=== PATIENT | female | born 1995 | race American Indian/Alaskan Native ===

== ENCOUNTER 2018-03-04 10:46 | Emergency (ER) | payer MEDICAID ==
[2018-03-04 11:04] VITALS: RESP 16; TEMP 98.2
[2018-03-04 11:45] LABS: URINE BILIRUBIN NEGATIVE (NEGATIVE); URINE BLOOD NEGATIVE (NEGATIVE); URINE GLUCOSE (UA) NEGATIVE (NEGATIVE); URINE LEUKOCYTE ESTERASE SMALL Leu/uL (NEGATIVE); URINE PROTEIN TRACE mg/dL (<30 mg/dL); URINE UROBILINOGEN 0.2 E.U./dL (<1 E.U./dL)
--- NOTE | 2018-03-04 11:48 | ED PDOC ---
Arrival/HPI - General Chief Complaint: Female Genitourinary Time Seen by Provider: 03/04/18 11:19 Historian: Patient - History of Present Illness Narrative History of Present Illness (Text): 03/04/18 11:44 A 22 year old female, with a past medical history of chlamydia, presents to the emergency department for a complaint of 2 day duration vaginal irritation and itchiness. The patient notes that she had unprotected sexual intercourse 4 days ago. She states that she noticed the discomfort 2 days ago, but denies any discharge. The patient states that her symptoms feel similar to when she was diagnosed with chlamydia. The patient denies fevers, chills, headache, dizziness , chest pain, shortness of breath, dyspnea on exertion, cough, abdominal pain, nausea, vomiting, diarrhea, back pain, neck pain, urinary/bowel changes, or any other complaint. Time/Duration: Other (2 Days) Symptom Onset: Sudden Symptom Course: Unchanged Activities at Onset: Rest, Light Context: Home Past Medical History - Provider Review Nursing Documentation Reviewed: Yes - Cardiac Hx Cardiac Disorders: No - Pulmonary Hx Respiratory Disorders: No - Neurological Hx Neurological Disorder: No - HEENT Hx HEENT Disorder: No - Renal Hx Renal Disorder: No - Endocrine/Metabolic Hx Endocrine Disorders: No - Hematological/Oncological Hx Blood Disorders: No - Integumentary Hx Dermatological Disorder: No - Musculoskeletal/Rheumatological Hx Musculoskeletal Disorders: No - Gastrointestinal Hx Gastrointestinal Disorders: No - Genitourinary/Gynecological Hx Genitourinary Disorders: Yes Hx Sexually Transmitted Diseases: Yes - Psychiatric Hx Psychophysiologic Disorder: No Hx Substance Use: Yes (CANNABIS) - Surgical History Other/Comment: AB Family/Social History - Physician Review Nursing Documentation Reviewed: Yes Family/Social History: No Known Family HX Smoking Status: Current Some Days Smoker Hx Alcohol Use: Yes Frequency of alcohol use: Socially Hx Substance Use: Yes (CANNABIS) Allergies/Home Meds Allergies/Adverse Reactions: Allergies No Known Allergies Allergy (Verified 03/04/18 10:59) Review of Systems - Physician Review All systems were reviewed & negative as marked: Yes - Review of Systems Constitutional: absent: Fevers, Night Sweats Respiratory: absent: SOB, Cough Cardiovascular: absent: Chest Pain, KRUGER Gastrointestinal: absent: Abdominal Pain, Stool Changes, Diarrhea, Nausea, Vomiting Genitourinary Female: Other (Vaginal irritation and itchiness. ). absent: Urine Output Changes Neurological: absent: Headache, Dizziness Physical Exam Vital Signs Reviewed: Yes Vital Signs Temp Pulse Resp BP Pulse Ox 03/04/18 10:59 98.2 F 83 16 115/73 97 Temperature: Afebrile Blood Pressure: Normal Pulse: Regular Respiratory Rate: Normal Appearance: Positive for: Well-Appearing, Non-Toxic, Comfortable Pain Distress: None Mental Status: Positive for: Alert and Oriented X 3 - Systems Exam Head: Present: Atraumatic, Normocephalic Pupils: Present: PERRL Extroacular Muscles: Present: EOMI Conjunctiva: Present: Normal Mouth: Present: Moist Mucous Membranes Neck: Present: Normal Range of Motion Respiratory/Chest: Present: Clear to Auscultation, Good Air Exchange. No: Respiratory Distress, Accessory Muscle Use Cardiovascular: Present: Regular Rate and Rhythm, Normal S1, S2. No: Murmurs Abdomen: No: Tenderness, Distention, Peritoneal Signs Genitourinary/Pelvic Exam: Present: Vaginal Discharge (Thick, white vaginal discharge), Other (Female Commercial Construction Estimator Sandra Tavares present.). No: Cervical Motion Tendernes Back: Present: Normal Inspection Upper Extremity: Present: Normal Inspection. No: Cyanosis, Edema Lower Extremity: Present: Normal Inspection. No: Edema Neurological: Present: GCS=15, CN II-XII Intact, Speech Normal Skin: Present: Warm, Dry, Normal Color. No: Rashes Psychiatric: Present: Alert, Oriented x 3, Normal Insight, Normal Concentration Medical Decision Making ED Course and Treatment: 03/04/18 11:50 Impression: A 22 year old female presents to the emergency department complaining of 2 day duration vaginal itchiness and irritation. Plan: -- Zithromax and Rocephin -- Urine Culture -- Urinalysis -- GC/chylamdyia -- Reassess and disposition Progress Notes: 03/04/18 11:58 pt is non toxic well appearing; no distress. ua; contamination pt with possible std exposure. hx of chlamydia in the past with similar symptoms. will treat with rocephin and zithromax . gc/chylamdyia cultures pending. will d/c home with diflucan for yeast infection. impression; vaginal discharge diflucan; 1 tablet once. follow up with the primary care physician within the next 2 days follow up with linux network administrator within the next 2 days. Return if symptoms worsen,persist or if new symptoms develop. 03/04/18 12:13 - Lab Interpretations Lab Results: Lab Results 03/04/18 11:30: Urine Color Yellow, Urine Appearance Clear, Urine pH 6.0, Ur Specific [place] 1.025, Urine Protein Trace H, Urine Glucose (UA) Negative, Urine Ketones Negative, Urine Blood Negative, Urine Nitrate Negative, Urine Bilirubin Negative, Urine Urobilinogen 0.2, Ur Leukocyte Esterase Small H, Urine RBC Negative, Urine WBC 2 - 5, Ur Epithelial Cells 6 - 8, Urine Bacteria Few - Medication Orders Current Medication Orders: Discontinued Medications Azithromycin (Zithromax) 1,000 mg PO STAT STA PRN Reason: Protocol Stop: 03/04/18 11:52 Ceftriaxone Sodium (Rocephin) 250 mg IM STAT STA PRN Reason: Protocol Stop: 03/04/18 11:52 - Scribe Statement The provider has reviewed the documentation as recorded by the [employer]us[employer] Sandra Tavares Provider Scribe Attestation: All medical record entries made by the Scribe were at my direction and personally dictated by me. I have reviewed the chart and agree that the record accurately reflects my personal performance of the history, physical exam, medical decision making, and the department course for this patient. I have also personally directed, reviewed, and agree with the discharge instructions and disposition. Disposition/Present on Arrival - Present on Arrival Any Indicators Present on Arrival: No History of DVT/PE: No History of Uncontrolled Diabetes: No Urinary Catheter: No History of Decub. Ulcer: No History Surgical Site Infection Following: None - Disposition Have Diagnosis and Disposition been Completed?: Yes Diagnosis: Vaginal discharge Disposition: HOME/ ROUTINE Disposition Time: 12:09 Patient Plan: Discharge Patient Problems: Current Active Problems Problem Status Onset Vaginal discharge Acute Condition: GOOD Discharge Instructions (ExitCare): Vaginal Discharge in Adults Additional Instructions: diflucan; 1 tablet once. follow up with the primary care physician within the next 2 days follow up with linux network administrator within the next 2 days. Return if symptoms worsen,persist or if new symptoms develop. Prescriptions: Fluconazole [Diflucan] 150 mg PO ONCE #1 tab Referrals: Nicole Shah MD [Primary Care Provider] - Follow up with primary Marvin Go MD [Staff Provider] - Follow up with primary Forms: [facility] (Australian), WORK NOTE
[2018-03-04 11:49] LABS: URINE APPEARANCE CLEAR (CLEAR); URINE COLOR YELLOW (YELLOW)
[2018-03-04] MEDS ORDERED: cefTRIAXone (Rocephin) 250 mg Inj IM STA (11:51)
[2018-03-04 12:01] LABS: URINE BACTERIA FEW (NEG); URINE RBC NEGATIVE /hpf (0-2)
[2018-03-04 12:32] VITALS: BP 118/70; PULSE 78; O2SAT 98
== END 2018-03-04 12:47 | disposition home or self-care (01) ==
LOC: MERGE 10:46 → ED 10:46
DX: N89.8 Other specified noninflammatory disorders of vagina (principal); F17.200 Nicotine dependence, unspecified, uncomplicated
CPT/HCPCS: 81001; 87086; 87491; 87591; 96372; 99284; J0696

== ENCOUNTER 2018-06-27 17:27 | Emergency (ER) | payer MEDICAID ==
[2018-06-27 17:27] VITALS: BMI 17.8
[2018-06-27 17:58] VITALS: RESP 18; TEMP 98.3; O2SAT 100
[2018-06-27 19:05] LABS: URINE BILIRUBIN NEGATIVE (NEGATIVE); URINE BLOOD NEGATIVE (NEGATIVE); URINE GLUCOSE (UA) NEGATIVE (NEGATIVE); URINE LEUKOCYTE ESTERASE SMALL Leu/uL (NEGATIVE); URINE PROTEIN 30 mg/dL (<30 mg/dL)
--- NOTE | 2018-06-27 19:05 | ED PDOC ---
Arrival/HPI - General Chief Complaint: Female Genitourinary Time Seen by Provider: 06/27/18 17:48 Historian: Patient - History of Present Illness Narrative History of Present Illness (Text): 06/27/18 19:05 22-year-old female presents today with concerns for a 4 day history of vaginal irritation. Patient states she noted some brownish vaginal discharge as well. Patient denies fevers or chills. No chest pain or shortness of breath. She denies abdominal pain. Denies any urinary symptoms. She denies any vaginal lesions. Patient states she thinks that she may have a yeast infection. Patient denies any recent unprotected sex. Patient denies flank pain. No other complaints Past Medical History - Provider Review Nursing Documentation Reviewed: Yes - Travel History Have you recently traveled outside [place] w/in the past 3 mons?: No - Cardiac Hx Cardiac Disorders: No - Pulmonary Hx Respiratory Disorders: No - Neurological Hx Neurological Disorder: No - HEENT Hx HEENT Disorder: Yes Other/Comment: OTITIS, PHARYNGITIS - Renal Hx Renal Disorder: No - Endocrine/Metabolic Hx Endocrine Disorders: No - Hematological/Oncological Hx Blood Disorders: No - Integumentary Hx Dermatological Disorder: No - Musculoskeletal/Rheumatological Hx Musculoskeletal Disorders: No - Gastrointestinal Hx Gastrointestinal Disorders: No - Genitourinary/Gynecological Hx Genitourinary Disorders: Yes Hx Sexually Transmitted Diseases: Yes Other/Comment: VAGINITIS - Psychiatric Hx Psychophysiologic Disorder: No Hx Substance Use: Yes - Surgical History Other/Comment: AB - Anesthesia Hx Anesthesia: No Hx Anesthesia Reactions: No - Suicidal Assessment Feels Threatened In Home Enviroment: No Family/Social History - Physician Review Nursing Documentation Reviewed: Yes Family/Social History: Unknown Family HX Smoking Status: Light Smoker < 10 Cigarettes Daily Hx Alcohol Use: Yes Hx Substance Use: Yes Substance used: marijuana Allergies/Home Meds Allergies/Adverse Reactions: Allergies No Known Allergies Allergy (Verified 06/27/18 17:37) Review of Systems - Review of Systems Constitutional: absent: Fatigue, Fevers Respiratory: absent: SOB, Cough Cardiovascular: absent: Chest Pain, Palpitations Gastrointestinal: absent: Abdominal Pain, Nausea, Vomiting Genitourinary Female: absent: Dysuria, Frequency, Hematuria Musculoskeletal: absent: Arthralgias, Back Pain, Neck Pain Skin: absent: Rash, Pruritis Neurological: absent: Headache, Dizziness Psychiatric: absent: Anxiety, Depression, Suicidal Ideation Physical Exam Vital Signs Reviewed: Yes Vital Signs Temp Pulse Resp BP Pulse Ox 06/27/18 17:57 98.3 F 74 18 121/62 100 Temperature: Afebrile Blood Pressure: Normal Pulse: Regular Respiratory Rate: Normal Appearance: Positive for: Well-Appearing, Non-Toxic, Comfortable Pain Distress: None Mental Status: Positive for: Alert and Oriented X 3 - Systems Exam Head: Present: Atraumatic Mouth: Present: Moist Mucous Membranes Neck: Present: Normal Range of Motion Respiratory/Chest: Present: Clear to Auscultation, Good Air Exchange. No: Respiratory Distress, Accessory Muscle Use Cardiovascular: Present: Regular Rate and Rhythm, Normal S1, S2. No: Murmurs Abdomen: No: Tenderness, Distention, Rebound, Guarding Genitourinary/Pelvic Exam: Present: Normal External Genitalia, Vaginal Discharge (small amount of white vaginal discharge.), Cervical os Closed, Other (no vaginal lesions. chaparoned by tarik TAN). No: Vaginal Bleeding, Vaginal Lesions, Adenexal Tenderness, Adenexal Mass, Cervical Motion Tendernes Back: Present: Normal Inspection. No: CVA Tenderness Upper Extremity: Present: Normal ROM Neurological: Present: GCS=15 Skin: Present: Warm, Dry, Normal Color. No: Rashes Psychiatric: Present: Alert, Oriented x 3 Medical Decision Making ED Course and Treatment: 06/27/18 19:10 22yr old female with 4 day history of vaginal irritation. UA: + leukocytes, + bacteria gC/chlamydia pending. Rocephin and Zithromax ordered Urine culture pending pt reassessment; pt is non toxic well appearing; no distress. stable vitals. discussed results in depth with patient; advised f/u with molecular genetic pathologist. advised return if symptoms worsen,persist or if new symptoms develop. Advised taking antibiotics as prescribed. Advised to refrain from unprotected sex and have partners tested and treated Patient verbalizes understanding of discharge instructions and need for immediate followup. all aspects of this case were discussed the attending of record. impression; vaginal discharge, vaginal irritation, UTI increase fluids Keflex twice daily 7 days Diflucan 1 tablet once follow up with the primary care physician within the next 2 days. Follow up with the LEAF SORTER within the next 2 days return immediately if symptoms worsen,persist or if new symptoms develop; high fevers, abdominal pain, vomiting, or if any other concerning symptoms develop. - Lab Interpretations Lab Results: Lab Results 06/27/18 18:51: Urine Color Yellow, Urine Appearance Clear, Urine pH 6.0, Ur Specific [place] >= 1.030, Urine Protein 30 H, Urine Glucose (UA) Negative, Urine Ketones Negative, Urine Blood Negative, Urine Nitrate Negative, Urine Bilirubin Negative, Urine Urobilinogen 1.0 H, Ur Leukocyte Esterase Small H, Urine RBC 2 - 5, Urine WBC 5 - 10, Ur Epithelial Cells 6 - 8, Urine Bacteria Mod , Urine Other Mucus - Medication Orders Current Medication Orders: Azithromycin (Zithromax) 1,000 mg PO STAT STA PRN Reason: Protocol Stop: 06/27/18 20:09 Ceftriaxone Sodium (Rocephin) 250 mg IM STAT STA PRN Reason: Protocol Stop: 06/27/18 20:09 Disposition/Present on Arrival - Present on Arrival Any Indicators Present on Arrival: No History of DVT/PE: No History of Uncontrolled Diabetes: No Urinary Catheter: No History of Decub. Ulcer: No History Surgical Site Infection Following: None - Disposition Have Diagnosis and Disposition been Completed?: Yes Diagnosis: Urinary tract infection, Vaginal discharge, Vaginal irritation Disposition: HOME/ ROUTINE Disposition Time: 19:52 Patient Plan: Discharge Patient Problems: Current Active Problems Problem Status Onset Vulvovaginitis Acute Condition: GOOD Discharge Instructions (ExitCare): Vaginal Discharge in Adults, Urinary Tract Infection, Adult (DC) Additional Instructions: increase fluids Keflex twice daily 7 days Diflucan 1 tablet once follow up with the primary care physician within the next 2 days. Follow up with the LEAF SORTER within the next 2 days return immediately if symptoms worsen,persist or if new symptoms develop; high fevers, abdominal pain, vomiting, or if any other concerning symptoms develop. Prescriptions: Cephalexin [Keflex] 500 mg PO BID #14 capsule Fluconazole [Diflucan] 150 mg PO ONCE #1 tab Referrals: Nicole Shah MD [Primary Care Provider] - Follow up with primary Yumiko Jolly MD [Staff Provider] - [facility] - Follow up with primary Forms: [facility] (Japanese), WORK NOTE
[2018-06-27 19:20] LABS: URINE APPEARANCE CLEAR (CLEAR); URINE COLOR YELLOW (YELLOW)
[2018-06-27 20:01] LABS: URINE BACTERIA MOD (NEG)
[2018-06-27] MEDS ORDERED: cefTRIAXone (Rocephin) 250 mg Inj IM STA (20:08)
[2018-06-27 21:24] VITALS: BP 118/68; PULSE 71
== END 2018-06-27 21:23 | disposition home or self-care (01) ==
LOC: ED 17:27
DX: N39.0 Urinary tract infection, site not specified (principal); N89.8 Other specified noninflammatory disorders of vagina; F17.210 Nicotine dependence, cigarettes, uncomplicated
CPT/HCPCS: 81001; 87086; 87491; 87591; 96372; 99283; J0696